=== PATIENT | male | born 1990 | race Caucasian/White ===

== ENCOUNTER 2018-08-30 14:41 | Emergency (ER) | payer OTHER | END 2018-08-30 16:31 | disposition home or self-care (01) | LOC: FTE 14:41 | DX: R10.33 Periumbilical pain (principal); R11.10 Vomiting, unspecified | CPT/HCPCS: 99283 ==

== ENCOUNTER 2018-09-15 16:51 | Inpatient (IN) | payer OTHER ==
[2018-09-15 17:52] LABS: ADD MAN DIFF? NO
[2018-09-15 18:03] LABS: WHITE BLOOD COUNT 4.8 10^3/ul (4.8-10.8)
[2018-09-15 18:03] LABS: BASOPHIL # 0.1 10^3/ul (0.0-0.1); BASOPHILS % 1.3 % (0.0-2.0); EOSINOPHILS # 0.1 10^3/ul (0.0-0.5); EOSINOPHILS % 2.1 % (0.0-7.0); HEMATOCRIT 45.3 % (42.0-52.0); HEMOGLOBIN 15.2 g/dl (14.0-18.0); LYMPHOCYTES # 1.2 10^3/ul (0.8-2.9); LYMPHOCYTES % 25.5 % (15.0-51.0); MEAN CORPUSCULAR HEMOGLOBIN 29.4 pg (29.0-33.0); MEAN CORPUSCULAR HGB CONC 33.6 g/dl (32.0-37.0); MEAN CORPUSCULAR VOLUME 87.6 fl (82.0-101.0); MEAN PLATELET VOLUME 9.3 fl (7.4-10.4); MONOCYTE # 0.3 10^3/ul (0.3-0.9); MONOCYTES % 7.2 % (0.0-11.0); NEUTROPHILS % 63.7 % (39.0-77.0); PLATELET COUNT 348 10^3/UL (140-415); RED BLOOD COUNT 5.17 10^6/ul (4.70-6.10); RED CELL DISTRIBUTION WIDTH 12.1 % (11.5-14.5)
[2018-09-15 18:28] LABS: ADD UMIC YES; UR ASCORBIC ACID NEGATIVE (NEGATIVE); UR BILIRUBIN (Dip) 2+ mg/dL (NEGATIVE); UR BLOOD (Dip) NEGATIVE (NEGATIVE); UR CLARITY CLEAR (CLEAR); UR COLOR AMBER (YELLOW); UR GLUCOSE (Dip) NEGATIVE (NEGATIVE); UR KETONES (Dip) NEGATIVE (NEGATIVE); UR LEUKOCYTE ESTERASE (Dip) NEGATIVE Leu/ul (NEGATIVE); UR MUCUS MODERATE /HPF (NONE SEEN); UR NITRITE (Dip) NEGATIVE (NEGATIVE); UR RBC 6 /HPF (0-5); UR SPECIFIC GRAVITY (Dip) 1.023 (1.003-1.030); UR TOTAL PROTEIN (Dip) 1+ mg/dl (NEGATIVE); UR UROBILINOGEN (Dip) 2+ mg/dL (NEGATIVE); UR WBC 2 /HPF (0-5)
[2018-09-15 18:29] LABS: ALANINE AMINOTRANSFERASE 958 IU/L (13-69); ALBUMIN 5.9 g/dl (3.3-4.9); ALBUMIN/GLOBULIN RATIO 3.27; ALKALINE PHOSPHATASE 299 IU/L (42-121); ANION GAP 11 (5-13); ASPARTATE AMINO TRANSFERASE 386 IU/L (15-46); BILIRUBIN,INDIRECT 1.1 mg/dl (0-1.1); BILIRUBIN,TOTAL 2.9 mg/dl (0.2-1.3); BLOOD UREA NITROGEN 6 mg/dl (7-20); CALCIUM 10.2 mg/dl (8.4-10.2); CARBON DIOXIDE 34 mmol/L (21-31); CHLORIDE 96 mmol/L (97-110); CREATININE 0.95 mg/dl (0.61-1.24); Estimated GFR > 60 mL/min (>60); GLUCOSE 97 mg/dl (70-220); LIPASE 93 U/L (23-300); POTASSIUM 3.9 mmol/L (3.5-5.1); SODIUM 141 mmol/L (135-144); TOTAL PROTEIN 7.7 g/dl (6.1-8.1)
[2018-09-15] MEDS: PIPER-TAZO 3.375 GM IV (PMX) 100 ML IVPB ×2 (19:00→23:49)
[2018-09-15] MEDS: ONDANSETRON 4 MG INJ IV (19:58)
[2018-09-15] MEDS: morphine 4 MG/ML VIAL IV (19:58)
[2018-09-15] MEDS ORDERED: ACETAMINOPHEN 325 MG TAB PO (20:00)
[2018-09-15] MEDS ORDERED: ONDANSETRON 4 MG INJ IV (20:00)
[2018-09-15 20:04] LABS: INR 0.82; PROTIME 11.4 Sec (11.9-14.9); PT RATIO 0.9
[2018-09-15 20:05] LABS: PARTIAL THROMBOPLASTIN TIME 30.5 Sec (23.0-35.0)
[2018-09-15] MEDS: SOD CHLORIDE 0.9% 1,000 ML IV (20:07)
[2018-09-15] MEDS ORDERED: NACL 0.9% 3 ML SYG IV (21:00)
[2018-09-15] MEDS: FAMOTIDINE 20 MG INJ IV (21:52)
[2018-09-15] MEDS: DEXTROSE 5%-0.45% NACL 1,000 ML IV (21:53)
[2018-09-16] MEDS: DEXTROSE 5%-0.45% NACL 1,000 ML IV ×3 (05:00→19:00)
[2018-09-16] MEDS: PIPER-TAZO 3.375 GM IV (PMX) 100 ML IVPB ×3 (05:09→17:53)
[2018-09-16 05:21] LABS: ADD MAN DIFF? NO
[2018-09-16 05:27] LABS: BASOPHIL # 0.1 10^3/ul (0.0-0.1); BASOPHILS % 1.2 % (0.0-2.0); EOSINOPHILS # 0.2 10^3/ul (0.0-0.5); HEMATOCRIT 41.4 % (42.0-52.0); HEMOGLOBIN 13.6 g/dl (14.0-18.0); LYMPHOCYTES # 1.3 10^3/ul (0.8-2.9); LYMPHOCYTES % 31.4 % (15.0-51.0); MEAN CORPUSCULAR HEMOGLOBIN 29.4 pg (29.0-33.0); MEAN CORPUSCULAR HGB CONC 32.9 g/dl (32.0-37.0); MEAN CORPUSCULAR VOLUME 89.4 fl (82.0-101.0); MEAN PLATELET VOLUME 9.4 fl (7.4-10.4); MONOCYTE # 0.4 10^3/ul (0.3-0.9); MONOCYTES % 10.6 % (0.0-11.0); NEUTROPHIL # 2.1 10^3/ul (1.6-7.5); NEUTROPHILS % 51.6 % (39.0-77.0); PLATELET COUNT 282 10^3/UL (140-415); RED BLOOD COUNT 4.63 10^6/ul (4.70-6.10); RED CELL DISTRIBUTION WIDTH 12.3 % (11.5-14.5)
[2018-09-16 05:47] LABS: ALANINE AMINOTRANSFERASE 716 IU/L (13-69); ALBUMIN 4.1 g/dl (3.3-4.9); ALKALINE PHOSPHATASE 228 IU/L (42-121); ANION GAP 10 (5-13); ASPARTATE AMINO TRANSFERASE 280 IU/L (15-46); BILIRUBIN,TOTAL 1.9 mg/dl (0.2-1.3); BLOOD UREA NITROGEN 6 mg/dl (7-20); CALCIUM 9.3 mg/dl (8.4-10.2); CARBON DIOXIDE 32 mmol/L (21-31); CHLORIDE 100 mmol/L (97-110); CREATININE 0.99 mg/dl (0.61-1.24); Estimated GFR > 60 mL/min (>60); GLUCOSE 113 mg/dl (70-220); MAGNESIUM 2.1 mg/dl (1.7-2.5); PHOSPHORUS 4.5 mg/dl (2.5-4.9); POTASSIUM 3.9 mmol/L (3.5-5.1); SODIUM 142 mmol/L (135-144); TOTAL PROTEIN 6.5 g/dl (6.1-8.1)
[2018-09-16] MEDS: FAMOTIDINE 20 MG INJ IV ×2 (09:39→20:48)
[2018-09-16] MEDS ORDERED: ALBUTEROL HFA 8 GM INHALER INH (14:00)
[2018-09-16] MEDS: ONDANSETRON 4 MG INJ IV (17:53)
[2018-09-16] MEDS: morphine 2 MG INJ IV (17:53)
[2018-09-17] MEDS: PIPER-TAZO 3.375 GM IV (PMX) 100 ML IVPB ×4 (00:20→19:13)
[2018-09-17] MEDS: DEXTROSE 5%-0.45% NACL 1,000 ML IV ×4 (01:34→20:32)
[2018-09-17 05:34] LABS: ADD MAN DIFF? NO
[2018-09-17 05:51] LABS: BASOPHILS % 1.1 % (0.0-2.0); EOSINOPHILS # 0.3 10^3/ul (0.0-0.5); EOSINOPHILS % 7.2 % (0.0-7.0); HEMATOCRIT 40.4 % (42.0-52.0); HEMOGLOBIN 13.1 g/dl (14.0-18.0); LYMPHOCYTES # 1.2 10^3/ul (0.8-2.9); LYMPHOCYTES % 31.9 % (15.0-51.0); MEAN CORPUSCULAR HEMOGLOBIN 29.2 pg (29.0-33.0); MEAN CORPUSCULAR HGB CONC 32.4 g/dl (32.0-37.0); MEAN CORPUSCULAR VOLUME 90.2 fl (82.0-101.0); MEAN PLATELET VOLUME 9.4 fl (7.4-10.4); MONOCYTE # 0.3 10^3/ul (0.3-0.9); MONOCYTES % 8.6 % (0.0-11.0); NEUTROPHIL # 1.8 10^3/ul (1.6-7.5); NEUTROPHILS % 50.9 % (39.0-77.0); PLATELET COUNT 253 10^3/UL (140-415); RED BLOOD COUNT 4.48 10^6/ul (4.70-6.10); RED CELL DISTRIBUTION WIDTH 12.5 % (11.5-14.5)
[2018-09-17 05:51] LABS: WHITE BLOOD COUNT 3.6 10^3/ul (4.8-10.8)
[2018-09-17 06:29] LABS: HEMOGLOBIN A1C 4.7 % (0-5.9)
[2018-09-17 06:41] LABS: ALANINE AMINOTRANSFERASE 644 IU/L (13-69); ALBUMIN 3.8 g/dl (3.3-4.9); ALBUMIN/GLOBULIN RATIO 1.52; ALKALINE PHOSPHATASE 218 IU/L (42-121); ANION GAP 10 (5-13); ASPARTATE AMINO TRANSFERASE 241 IU/L (15-46); BILIRUBIN,INDIRECT 0.9 mg/dl (0-1.1); BILIRUBIN,TOTAL 1.5 mg/dl (0.2-1.3); BLOOD UREA NITROGEN 5 mg/dl (7-20); CALCIUM 9.3 mg/dl (8.4-10.2); CARBON DIOXIDE 30 mmol/L (21-31); CHLORIDE 104 mmol/L (97-110); CHOLESTEROL 210 mg/dl (100-200); CREATININE 1.01 mg/dl (0.61-1.24); Estimated GFR > 60 mL/min (>60); GLUCOSE 122 mg/dl (70-220); HDL CHOLESTEROL 30 mg/dl (28-63); LDL CHOLESTEROL,CALCULATED 147 mg/dl; LIPASE 74 U/L (23-300); POTASSIUM 3.8 mmol/L (3.5-5.1); SODIUM 144 mmol/L (135-144); TOTAL PROTEIN 6.3 g/dl (6.1-8.1); TRIGLYCERIDES 163 mg/dl (0-149)
[2018-09-17 06:54] LABS: HEPATITIS B SURFACE ANTIGEN NEGATIVE (NEGATIVE)
[2018-09-17 06:55] LABS: THYROID STIMULATING HORMONE 0.899 MIU/L (0.465-4.680)
[2018-09-17 07:12] LABS: HEPATITIS C VIRAL ANTIBODY NEGATIVE (NEGATIVE)
[2018-09-17] MEDS ORDERED: INDOMETHACIN 50 MG SUPP PR (07:38)
[2018-09-17] MEDS ORDERED: MEPERIDINE 25 MG INJ IV (08:30)
[2018-09-17] MEDS ORDERED: DIPHENHYDRAMINE 50 MG INJ IV (08:30)
[2018-09-17] MEDS ORDERED: METOCLOPRAMIDE 10 MG INJ IV (08:30)
[2018-09-17] MEDS ORDERED: FENTAnyl 50 MCG/ML VIAL IV ×3 (08:30)
[2018-09-17] MEDS ORDERED: EPHEDrine SULFATE 50 MG/5 ML SYG IV (08:30)
[2018-09-17] MEDS ORDERED: LABETALOL HCL 20MG INJ IV (08:30)
[2018-09-17] MEDS ORDERED: ONDANSETRON 4 MG INJ IV (08:30)
[2018-09-17] MEDS ORDERED: HYDROmorphONE 1 MG/5 ML IV SYRINGE IV (08:30)
[2018-09-17] MEDS: FAMOTIDINE 20 MG INJ IV ×2 (09:00→20:30)
[2018-09-17] MEDS ORDERED: ROCURONIUM 50 MG INJ (09:02)
[2018-09-17] MEDS ORDERED: CEFAZOLIN 1 GM INJ (09:02)
[2018-09-17] MEDS ORDERED: PROPOFOL 20 ML (09:02)
[2018-09-17] MEDS ORDERED: FENTAnyl 50 MCG/ML VIAL ×2 (09:03→10:34)
[2018-09-17] MEDS: LIDOCAINE 1% (STERILE-PAK) 30 ML INJ (09:03)
[2018-09-17] MEDS: BUPIVACAINE 0.25%/EPI (SDV) 10 ML INJ (09:03)
[2018-09-17] MEDS ORDERED: MIDAZOLAM 1 MG/ML 2 ML INJ (09:03)
[2018-09-17] MEDS ORDERED: ROPIVACAINE 0.5 % 30 ML VIAL (09:46)
[2018-09-17] MEDS ORDERED: KETOROLAC 30 MG INJ (10:23)
[2018-09-17] MEDS ORDERED: METOCLOPRAMIDE 10 MG INJ (10:23)
[2018-09-17] MEDS ORDERED: ONDANSETRON 4 MG INJ (10:23)
[2018-09-17] MEDS ORDERED: DEXAMETHASONE 4 MG/ML 1 ML INJ (10:23)
[2018-09-17] MEDS ORDERED: metroNIDAZOLE 500 MG/NS (PMX) 100 ML IVPB (10:25)
[2018-09-17] MEDS ORDERED: GLYCOPYRROLATE 0.4 MG INJ (10:46)
[2018-09-17] MEDS ORDERED: NEOSTIGMINE 3 MG/3 ML SYRINGE (10:46)
[2018-09-17] MEDS: HYDROmorphONE 1 MG/5 ML IV SYRINGE IV ×5 (12:30→13:15)
[2018-09-17] MEDS: ONDANSETRON 4 MG INJ IV (12:30)
[2018-09-17] MEDS: morphine 2 MG INJ IV ×2 (17:20→20:30)
[2018-09-18] MEDS: PIPER-TAZO 3.375 GM IV (PMX) 100 ML IVPB ×3 (00:22→12:33)
[2018-09-18] MEDS: DEXTROSE 5%-0.45% NACL 1,000 ML IV ×3 (00:22→09:54)
[2018-09-18] MEDS: morphine 2 MG INJ IV ×3 (00:25→10:06)
[2018-09-18] MEDS: INDOMETHACIN 50 MG SUPP PR (07:30)
[2018-09-18 07:48] LABS: ADD MAN DIFF? NO
[2018-09-18 07:51] LABS: WHITE BLOOD COUNT 4.9 10^3/ul (4.8-10.8)
[2018-09-18 07:51] LABS: BASOPHILS % 0.4 % (0.0-2.0); EOSINOPHILS # 0.1 10^3/ul (0.0-0.5); HEMATOCRIT 39.9 % (42.0-52.0); HEMOGLOBIN 12.9 g/dl (14.0-18.0); LYMPHOCYTES % 19.7 % (15.0-51.0); MEAN CORPUSCULAR HEMOGLOBIN 29.8 pg (29.0-33.0); MEAN CORPUSCULAR HGB CONC 32.3 g/dl (32.0-37.0); MEAN CORPUSCULAR VOLUME 92.1 fl (82.0-101.0); MEAN PLATELET VOLUME 9.9 fl (7.4-10.4); MONOCYTE # 0.4 10^3/ul (0.3-0.9); MONOCYTES % 7.7 % (0.0-11.0); NEUTROPHIL # 3.5 10^3/ul (1.6-7.5); PLATELET COUNT 249 10^3/UL (140-415); RED BLOOD COUNT 4.33 10^6/ul (4.70-6.10); RED CELL DISTRIBUTION WIDTH 12.6 % (11.5-14.5)
[2018-09-18 08:16] LABS: ALANINE AMINOTRANSFERASE 517 IU/L (13-69); ALBUMIN 3.5 g/dl (3.3-4.9); ALKALINE PHOSPHATASE 203 IU/L (42-121); AMYLASE 61 U/L (11-123); ANION GAP 6 (5-13); ASPARTATE AMINO TRANSFERASE 177 IU/L (15-46); BILIRUBIN,INDIRECT 0.9 mg/dl (0-1.1); BILIRUBIN,TOTAL 0.9 mg/dl (0.2-1.3); BLOOD UREA NITROGEN 6 mg/dl (7-20); CALCIUM 9.1 mg/dl (8.4-10.2); CARBON DIOXIDE 33 mmol/L (21-31); CHLORIDE 104 mmol/L (97-110); CREATININE 0.98 mg/dl (0.61-1.24); Estimated GFR > 60 mL/min (>60); GLUCOSE 113 mg/dl (70-220); LIPASE 192 U/L (23-300); POTASSIUM 4.5 mmol/L (3.5-5.1); SODIUM 143 mmol/L (135-144)
[2018-09-18] MEDS: FAMOTIDINE 20 MG INJ IV (09:54)
[2018-09-18] MEDS ORDERED: ACETAMINOPHEN 650MG/20.3ML CUP PO (16:00)
[2018-09-18] MEDS: HYDROCODONE/APAP (10/325) TAB PO (17:17)
== END 2018-09-18 18:50 | disposition home or self-care (01) | DRG 418 ==
LOC: FTE 16:51 → 2NE 19:59
PROC: 0FC98ZZ Extirpation of Matter from Common Bile Duct, Via Natural or Artificial Opening Endoscopic (ICD-10-PCS; principal; 2018-09-17 08:00)
PROC: 0F798ZZ Dilation of Common Bile Duct, Via Natural or Artificial Opening Endoscopic (ICD-10-PCS; 2018-09-17 08:00)
PROC: 0FT44ZZ Resection of Gallbladder, Percutaneous Endoscopic Approach (ICD-10-PCS; 2018-09-17 08:09)
PROC: 0FB04ZX Excision of Liver, Percutaneous Endoscopic Approach, Diagnostic (ICD-10-PCS; 2018-09-17 08:09)
DX: K80.66 Calculus of gallbladder and bile duct with acute and chronic cholecystitis without obstruction (principal); R17 Unspecified jaundice; J45.909 Unspecified asthma, uncomplicated; E78.5 Hyperlipidemia, unspecified; F41.1 Generalized anxiety disorder; R74.0 Nonspecific elevation of levels of transaminase and lactic acid dehydrogenase [LDH]; F98.8 Other specified behavioral and emotional disorders with onset usually occurring in childhood and adolescence; R11.2 Nausea with vomiting, unspecified
CPT/HCPCS: 36415; 74181; 74330; 76705; 78226; 80053; 80061; 81001; 82150; 83036; 83690; 83735; 84100; 84443; 85025; 85610; 85730; 86709; 86803; 86850; 86900; 86901; 87340; 88304; 88307; 88313; 90686; 93005; 96365; 96375; 99285-25